=== PATIENT | male | born 1975 | race Two or more races ===

== ENCOUNTER 2024-03-03 14:36 | Emergency (ER) | payer SELFPAY ==
[2024-03-03 14:35] VITALS: BP 142/93; PULSE 97; RESP 24; TEMP 36.8; O2SAT 95
--- NOTE | 2024-03-03 14:58 | ED_ITS ---
HPI - Alcohol General Chief Complaint: Alcohol Stated Complaint: ETOH Time Seen by Provider: 03/03/24 14:46 History of Present Illness HPI narrative: 48-year-old male who is intoxicated presents emergency department. Patient was drinking alcohol today and called the police because he wants to figure out a way to get back to [place]. Patient is alert and oriented. Patient denies any homicidal suicidal ideation. Patient states he has been homeless for the last few months Review of Systems Review of Systems: All systems reviewed & are unremarkable except as noted in HPI and below Exam Narrative: APPEARANCE: Well appearing, no pain, no distress, well-nourished. HEAD: normocephalic, atraumatic. EYES: PERRLA/EOMI, conjunctivae clear. NOSE: Normal no drainage EARS:TMS clear with good light reflex. THROAT: Pharynx clear, no exudate. NECK: Supple. No adenopathy, no masses. RESPIRATORY: Airway patent, respirations nonlabored. Clear to auscultation bilaterally, no rales, rhonchi, wheezing. CARDIOVASCULAR: Regular rate and rhythm without murmurs rubs or gallops. ABDOMINAL: Soft, nontender, nondistended, normal bowel sounds MUSCULOSKELETAL: Moves all extremities. Strength/ROM intact, No edema, No calf tenderness. NEURO: Alert. Cranial nerves II through XII intact. Good gait. Good coordination SKIN: Warm, dry. Normal Color PSYCHIATRIC: Tearful affect Course Course Emergency Course: Patient eloped from the emergency department. Vital Signs Vital signs: Vital Signs Temperature 98.2 F 03/03/24 14:35 Pulse Rate 97 03/03/24 14:35 Respiratory Rate 24 H 03/03/24 14:35 Blood Pressure 142/93 H 03/03/24 14:35 Pulse Oximetry 95 03/03/24 14:35 Oxygen Delivery Room Air 03/03/24 14:35 Temperature 98.2 F 03/03/24 14:35 Pulse Rate 97 03/03/24 14:35 Respiratory Rate 24 H 03/03/24 14:35 Blood Pressure 142/93 H 03/03/24 14:35 Pulse Oximetry 95 03/03/24 14:35 Oxygen Delivery Room Air 03/03/24 14:35 Discharge Plan Discharge Clinical Impression: Alcoholic intoxication Patient Disposition: Elopement After Seen by Prov Condition: Stable Follow-up/Referrals: PHYSICIAN,MICROBIOLOGY LAB ASSISTANT [Primary Care Provider] -
--- NOTE | 2024-03-03 15:08 | PC.NURSE ---
Pt observed walking towards exit stating that he was leaving. Pt ambulated to exit using steady gait. EDP and marine reporter aware
== END 2024-03-03 15:08 | disposition left against medical advice (07) ==
PROVIDERS: Emergency Provider Emergency Medicine
DX: F10.129 Alcohol abuse with intoxication, unspecified (principal)
CPT/HCPCS: 99283